=== PATIENT | male | born 1945 | race Caucasian/White ===

== ENCOUNTER 2018-09-14 15:26 | Emergency (ER) | payer MEDICARE, OTHER ==
[2018-09-14 16:12] LABS: ABSOLUTE EOSINOPHILS # (AUTO) 0.1 10^3/uL (0.0-0.6); ABSOLUTE LYMPHOCYTES (AUTO) 0.7 10^3/uL (0.5-4.7); ABSOLUTE MONOCYTES (AUTO) 0.5 10^3/uL (0.1-1.4); ABSOLUTE NEUT (AUTO) 6.3 10^3/uL (1.7-8.2); BASOPHILS % (AUTO) 0.2 % (0-2); EOSINOPHILS % (AUTO) 0.8 % (0-6); HEMATOCRIT 41.7 % (37.9-51.0); LYMPHOCYTES % (AUTO) 9.6 % (13-45); MEAN CORPUSCULAR HEMOGLOBIN 31.8 pg (27.0-33.4); MEAN CORPUSCULAR HGB CONC 33.6 g/dL (32.0-36.0); MEAN CORPUSCULAR VOLUME 95 fl (80-97); MONOCYTES % (AUTO) 6.5 % (3-13); PLATELET COUNT 158 10^3/uL (150-450); RED BLOOD COUNT 4.41 10^6/uL (4.35-5.55); RED CELL DISTRIBUTION WIDTH 13.8 % (11.5-14.0); SEGMENTED NEUTROPHILS % (AUTO) 82.9 % (42-78); TOTAL CELLS COUNTED % (AUTO) 100 %; WHITE BLOOD COUNT 7.6 10^3/uL (4.0-10.5)
[2018-09-14 16:37] LABS: ALANINE AMINOTRANSFERASE 26 U/L (21-72); ALBUMIN 3.8 g/dL (3.5-5.0); ALKALINE PHOSPHATASE 62 U/L (38-126); ANION GAP 12 (5-19); ASPARTATE AMINO TRANSFERASE 19 U/L (17-59); BILIRUBIN,DIRECT 0.3 mg/dL (0.0-0.4); BILIRUBIN,TOTAL 0.6 mg/dL (0.2-1.3); BLOOD UREA NITROGEN 34 mg/dL (7-20); CALCIUM 9.2 mg/dL (8.4-10.2); CARBON DIOXIDE 23 mmol/L (22-30); CHLORIDE 107 mmol/L (98-107); GLUCOSE 96 mg/dL (75-110); POTASSIUM 4.4 mmol/L (3.6-5.0); SODIUM 141.8 mmol/L (137-145)
[2018-09-14] MEDS ORDERED: NORMAL SALINE 500 ML IV ONE (16:49)
--- NOTE | 2018-09-14 17:22 | RADIOLOGY REPORT (SQ) ---
EXAM DESCRIPTION: CHEST SINGLE VIEW COMPLETED DATE/TIME: 09/14/2018 5:13 pm REASON FOR STUDY: near sycnope COMPARISON: None. EXAM PARAMETERS: NUMBER OF VIEWS: One view. TECHNIQUE: Single frontal radiographic view of the chest acquired. RADIATION DOSE: NA LIMITATIONS: None. FINDINGS: LUNGS AND PLEURA: No opacities, masses or pneumothorax. No pleural effusion. MEDIASTINUM AND HILAR STRUCTURES: No masses. Contour normal. HEART AND VASCULAR STRUCTURES: Cardiomegaly status post median sternotomy. BONES: No acute findings. HARDWARE: None in the chest. OTHER: No other significant finding. IMPRESSION: Cardiomegaly without acute abnormality of the lungs in AP projection. TECHNICAL DOCUMENTATION: JOB ID: [id number] [employer]- All Rights Reserved Reading location - IP/workstation name: [email or web address]
[2018-09-14 17:35] LABS: LIPASE 122.8 U/L (23-300)
[2018-09-14 17:52] LABS: APPEARANCE,URINE CLOUDY; BILIRUBIN,URINE NEGATIVE (NEGATIVE); COLOR,URINE YELLOW; GLUCOSE, URINE NEGATIVE (NEGATIVE); KETONES,URINE TRACE mg/dL (NEGATIVE); LEUKOCYTE ESTERASE,URINE LARGE (NEGATIVE); NITRITE,URINE POSITIVE (NEGATIVE); PROTEIN,URINE NEGATIVE (NEGATIVE); URINE SPECIFIC GRAVITY 1.015; UROBILINOGEN,URINE NEGATIVE mg/dL (<2.0)
[2018-09-14] MEDS ORDERED: CEFTRIAXONE 1 GM/D5W RTU 1 GM/50 ML RTUPB IV ONE (18:20)
--- NOTE | 2018-09-14 18:25 | ER Document Report ---
ED General - General Chief Complaint: Dizziness Stated Complaint: DIZZINESS Time Seen by Provider: 09/14/18 16:48 - HPI Patient complains to provider of: Dizziness nausea Notes: Patient coming in for evaluation of dizziness feeling unwell patient states he was outside today states he was exposed to which he states that he became pale diaphoretic no pain no head pain chest pain abdominal pain. Patient states he did have some nausea felt like his withdrawal however never did vomit. Patient denies any diarrhea. Patient states may have been drinking enough fluids for the last few days. Patient denies any fevers chills. Patient upon my evaluation is her receive Zofran and IV fluids by EMS. Patient states he is feeling much improved from when EMS had arrived. Denies any recent travel patient otherwise at this time states that he is astigmatic. - Related Data Allergies/Adverse Reactions: No Known Allergies Allergy (Unverified 09/14/18 15:40) Past Medical History - Social History Smoking Status: Never Smoker Frequency of alcohol use: None Drug Abuse: None Family History: Reviewed & Not Pertinent Patient has suicidal ideation: No Patient has homicidal ideation: No - Past Medical History Cardiac Medical History: Reports: Hx Heart Attack, Hx Hypercholesterolemia, Hx Hypertension Renal/ Medical History: Denies: Hx Peritoneal Dialysis Past Surgical History: Reports: Hx Cardiac Surgery - CABG Review of Systems - Review of Systems Constitutional: No symptoms reported EENT: No symptoms reported Cardiovascular: Dizziness Respiratory: No symptoms reported Gastrointestinal: Nausea Genitourinary: No symptoms reported Male Genitourinary: No symptoms reported Musculoskeletal: No symptoms reported Skin: No symptoms reported Hematologic/Lymphatic: No symptoms reported Neurological/Psychological: No symptoms reported -: Yes All other systems reviewed and negative Physical Exam - Vital signs Vitals: Temp Pulse Resp BP Pulse Ox 97.5 F 61 12 129/57 H 97 09/14/18 15:35 09/14/18 15:35 09/14/18 15:35 09/14/18 15:35 09/14/18 15:35 Interpretation: Normal - General General appearance: Appears well, Alert - HEENT Head: Normocephalic, Atraumatic Eyes: Normal Pupils: PERRL - Respiratory Respiratory status: No respiratory distress Chest status: Nontender Breath sounds: Normal Chest palpation: Normal - Cardiovascular Rhythm: Regular Heart sounds: Normal auscultation Murmur: No - Abdominal Inspection: Normal Distension: No distension Bowel sounds: Normal Tenderness: Nontender Organomegaly: No organomegaly - Back Back: Normal, Nontender - Extremities General upper extremity: Normal inspection, Nontender, Normal color, Normal ROM, Normal temperature General lower extremity: Normal inspection, Nontender, Normal color, Normal ROM, Normal temperature, Normal weight bearing. No: Paulie's sign - Neurological Neuro grossly intact: Yes Cognition: Normal Orientation: AAOx4 [place] Coma Scale Eye Opening: Spontaneous [place] Coma Scale Verbal: Oriented Maryjo Coma Scale Motor: Obeys Commands Maryjo Coma Scale Total: 15 Speech: Normal Motor strength normal: LUE, RUE, LLE, RLE Sensory: Normal - Psychological Associated symptoms: Normal affect, Normal mood - Skin Skin Temperature: Warm Skin Moisture: Dry Skin Color: Normal Course - Re-evaluation Re-evalutation: 09/14/18 21:01 Patient urinalysis does show signs of possible infection. Patient states that he does straight cath himself. Patient states that he does perform correct procedures. Patient states no history of recent UTIs however has had UTIs in the last 2 years. Patient laboratory studies otherwise not show any critical pathology. Discussed with patient the possibility of colonization with this urinalysis versus acute infection we will go ahead and treat for acute infection culture will be sent. Patient states he will follow-up with his urologist on Sunday. Patient feels much better after IV fluids here. Orthostatics otherwise negative patient able to ablate will be discharged home. - Vital Signs Vital signs: Temp Pulse Resp BP Pulse Ox 97.5 F 66 17 141/71 H 97 09/14/18 15:35 09/14/18 17:57 09/14/18 19:01 09/14/18 19:01 09/14/18 19:01 - Laboratory Result Diagrams: 09/14/18 15:49 09/14/18 15:49 Laboratory results interpreted by me: 09/14/18 09/14/18 09/14/18 15:49 15:49 17:26 Seg Neutrophils % 82.9 H Lymphocytes % 9.6 L BUN 34 H Creatinine 1.78 H Est GFR ( Amer) 45 L Est GFR (Non-Af Amer) 37 L Total Protein 6.0 L Urine Ketones TRACE H Urine Nitrite POSITIVE H Ur Leukocyte Esterase LARGE H Urine Ascorbic Acid 40 H Discharge - Discharge Clinical Impression: Dehydration UTI (urinary tract infection) Qualifiers: Urinary tract infection type: acute cystitis Hematuria presence: without hematuria Qualified Code(s): N30.00 - Acute cystitis without hematuria Condition: Stable Disposition: HOME, SELF-CARE Instructions: Cephalexin ([facility]), Urinary Tract Infection ([facility]) Additional Instructions: Please follow-up with your urologist on Sunday. I do believe your dizziness today was related to dehydration and another exposure to heat. Please make sure you are drinking plenty of fluids stay well-hydrated. Prescriptions: Cephalexin Monohydrate [Keflex 500 mg Capsule] 500 mg PO Q6H 7 Days capsule Ondansetron [Zofran Odt 4 mg Tablet] 0 - 1 tab PO Q6 #20 tab.rapdis
--- NOTE | 2018-09-14 18:28 | EKG REPORT ---
SEVERITY:- OTHERWISE NORMAL ECG - SINUS RHYTHM BORDERLINE LEFT AXIS DEVIATION : Confirmed by: Diana Kulkarni 14-Sep-2018 18:27:18
[2018-09-14 19:13] VITALS: BP 141/71
== END 2018-09-14 19:19 | disposition home or self-care (01) ==
LOC: ER 15:26
DX: N30.00 Acute cystitis without hematuria (principal); E86.0 Dehydration; R42 Dizziness and giddiness; R61 Generalized hyperhidrosis; R11.0 Nausea
CPT/HCPCS: 93005; 99284; 96361; 96365; 36415; 87086; 82550; 83690; 85025; 87088; 80053; 81001; 84484; 87186; 71045; 93010; J7040; J0696